=== PATIENT | male | born 1955 | race Caucasian/White ===

== ENCOUNTER → 2017-12-05 02:39 | Outpatient (CLI) | payer OTHER, SELFPAY ==
[2017-12-05 11:28] LABS: Abs Immature Grans 0.03 k/cumm (0.0-0.09); Absolute Basophil Count 0.03 k/cumm (0.0-0.2); Absolute Eosinophil Count 0.15 k/cumm (0.0-0.7); Absolute Lymphocyte Count 0.72 k/cumm (1.2-3.4); Absolute Monocyte Count 0.61 k/cumm (0.11-0.7); Absolute Neutrophil Count 5.35 k/cumm (1.2-6.7); Basophils % 0.4; Eosinophils % 2.2; HCT 43.1 % (40.0-50.0); HGB 14.1 g/dL (13.5-17.5); Immature Grans % 0.4; Lymphocytes % 10.4; Mean Corp. HGB Concentration 32.7 g/dL (32.0-36.0); Mean Corpuscular Hemoglobin 25.5 pg (27.0-33.0); Mean Corpuscular Volume 77.9 fL (80-95); Mean Platelet Volume 11.6 fL (8.0-11.0); Monocytes % 8.9; Neutrophils % 77.7; Platelet Count 166 x1000/uL (130-400); RBC 5.53 m/cumm (4.50-6.00); RBC Distribution Width 15.1 % (11.8-14.1); White Blood Cell Count 6.89 k/cumm (4.4-10.8)
[2017-12-05 11:36] LABS: ALT 33 U/L (12-78); AST 18 U/L (15-37); Albumin 3.6 g/dL (3.4-5.0); Alkaline Phosphatase 62 U/L (46-116); Anion Gap 6.7 mmol/L (3-11); BUN 19 mg/dL (7-18); Bilirubin, Total 0.6 mg/dL (0.2-1.0); CO2 29.3 mmol/L (21.0-32.0); CREATININE 1.04 mg/dL (0.70-1.30); Calcium 8.2 mg/dL (8.5-10.1); Chloride 105 mmol/L (98-107); Cholesterol 212 mg/dL (50-200); Glucose 87 mg/dL (70-100); HDL Cholesterol 48 mg/dL (40-60); LDL CHOLESTEROL 153 mg/dL (<100); Potassium 4.2 mmol/L (3.5-5.1); Sodium 141 mmol/L (136-145); Total Protein 6.3 g/dL (6.4-8.2); Triglyceride 79 mg/dL (30-150)
== END ==
PROVIDERS: PCP Internal Medicine; Visit Provider Internal Medicine
DX: E78.5 Hyperlipidemia, unspecified (principal); R07.9 Chest pain, unspecified; D64.9 Anemia, unspecified; Z83.3 Family history of diabetes mellitus; R35.1 Nocturia
CPT/HCPCS: 36415; 80053; 80061; 83721; 84154; 85025

== ENCOUNTER 2019-02-04 13:47 | Outpatient (REF) | payer MEDICARE, OTHER, SELFPAY ==
--- NOTE | 2019-02-04 11:45 | SKI_PTH ---
PATIENT: Anival Kyle LOC: N U#:[id number] AGE/SX: 63/M ROOM: RE02/04/[address]: Parvin Chen MD : [id number] BED: DIS: 02/04/2019 SPEC #: [id number] RECD: 02/04/19 18:30 STATUS: VITALIY REQ #: [id number] CANDI: 02/04/19 11:[address]: Parvin Malloy DEPT: Surgical Specimen RECD BY: Diya Boyer Tissues: 1 - SKIN BIOPSY(SHAVE/PUNCH) Procedures: SKIN LEVEL 4 Comments: [id number]
== END 2019-02-04 14:07 ==
LOC: LBN 13:47
PROVIDERS: PCP Internal Medicine; Visit Provider Internal Medicine
DX: L72.8 Other follicular cysts of the skin and subcutaneous tissue (principal); L28.0 Lichen simplex chronicus
CPT/HCPCS: 88305

== ENCOUNTER 2020-04-28 02:07 | Outpatient (CLI) | payer MEDICARE, OTHER, SELFPAY ==
[2020-04-28 12:54] LABS: Calculated LDL 91 mg/dL (<100); Cholesterol 157 mg/dL (<200); Glucose 93 mg/dL (74-106); HDL Cholesterol 53 mg/dL (40-60); Triglyceride 65 mg/dL (<150)
== END 2020-04-28 02:27 ==
PROVIDERS: PCP Nurse Practitioner; Visit Provider Nurse Practitioner
DX: E78.5 Hyperlipidemia, unspecified (principal); R07.9 Chest pain, unspecified
CPT/HCPCS: 36415; 80061; 82947

== ENCOUNTER 2020-08-07 13:51 | Emergency (ER) | payer MEDICARE, OTHER, SELFPAY ==
--- NOTE | 2020-08-07 13:45 | RT.EKG_ITS ---
APPROVED REPORT Exam: Resting ECG Patient Location: E HR:69 bpm ECG Measurements Heart Rate 69 AXIS FL 170 P 12 QRSd 95 QRS -15 QT 400 T -5 QTc 427 Conclusion Sinus rhythm...normal P axis, V-rate 60- 99 Low voltage, precordial leads...precordial leads <1.0mV I have reviewed and interpreted ECG and agree with software generated interpretation.
[2020-08-07 13:53] VITALS: BP 147/88; PULSE 82; RESP 18; TEMP 36.5; O2SAT 94
--- NOTE | 2020-08-07 14:04 | ED.GENADUL_ITS ---
Discharge Plan Disposition Patient Disposition: HOME Condition: Stable Discharge Details Clinical Impression: Burning chest pain Primary Care Provider: Gi Reddy ED Provider: Landon Cavanaugh Home Meds and New Rx's Prescriptions: New sucralfate [Carafate] 1 gram tablet 1 gm PO QACHS Qty: 14 RF: 0 famotidine [Pepcid] 20 mg tablet 20 mg PO DAILY Qty: 14 RF: 0 Continued cholecalciferol (vitamin D3) 5,000 unit capsule 5,000 unit PO DAILY RF: 0 atorvastatin 40 mg tablet 40 mg PO QPM Qty: 90 RF: 3 lisinopril 10 mg tablet 10 mg PO DAILY Qty: 90 RF: 3 citalopram 20 mg tablet 20 mg PO DAILY Qty: 135 RF: 3 Discharge Instructions Instructions: Chest Pain (ED), Diet for Stomach Ulcers and Gastritis (ED), GERD (Gastroesophageal Reflux Disease) (ED) Additional Instructions: Drink plenty of fluids and get plenty of rest. Your prescriptions have been sent electronically to your pharmacy. Call the pharmacy to make sure your prescriptions are ready before pickup. Take the prescriptions as directed. An order for an outpatient stress test has been placed. You will be contacted by the hospital radiology department regarding scheduling for this outpatient stress test. If your burning chest pain persists, call the general surgery office to schedule a follow-up appointment for reevaluation for consideration for possible GI causes of your chest pain including GERD, gastritis or ulcers. Follow-up with your primary care doctor in 1 week. Return to the emergency department with any worsening or new concerning symptoms. Referrals: Jing Colón DO [OSTEOPATHIC DOCTOR] - Discharge Data Discharge Date/Time-TO BE ENTERED AT DEPARTURE: 08/07/20 17:45 Discharge Physician: Olivia Mac Medical Decision Making <Olivia Mac DO - Last Filed: 08/07/20 20:36> 64-year-old male with a history of hypertension and obesity presents to the ED with complaint of intermittent exertional burning chest pain for the past several months, worse today with shoveling snow. EKG on arrival notes a rate of 69, sinus, no STEMI, nondiagnostic. Patient appears comfortable and nontoxic. Blood pressure mildly hypertensive at 147/88. His chest is nontender. He does admit to eating a fatty meal in the mornings frequently. He admits to an exertional component of his chest pain associated with dyspnea but also states the pain is burning with an acid taste in his mouth. Consider GI related etiology versus ACS. Will obtain screening labs, CT chest, and give Pepcid, GI cocktail, Carafate, fluids and reassess. Labs and imaging reviewed and unremarkable. Troponin negative. CT chest negative. Patient reassessed and his pain is completely resolved. Patient is agreeable with plan for second troponin. If negative, will plan for discharge to home. An order for an outpatient stress test placed. We will also send prescriptions for Pepcid and Carafate electronically to his pharmacy. He was also given surgery follow-up information if needed. Case endorsed to Dr. Cavanaugh to follow-up on repeat troponin and EKG. Medical Records Medical records reviewed: Yes I reviewed the patient's medical records. Imaging Data Radiologic Study: Radiologist's impression: CT CHEST PE CTA CLINICAL HISTORY: chest pain, sob, r/o acute disease. TECHNIQUE: Imaging Protocol: Axial CT angiography was performed with multi- slice acquisition and multi-planar and/or 3D reconstructions. CONTRAST MATERIAL: Intravenous: Visipaque 320 contrast volume:100 ml COMPARISON: CT RENAL COLIC WO CONTRAST from 06/21/2012 FINDINGS: Pulmonary Arteries: No evidence of filling defect to suggest pulmonary emboli. Tracheobronchial tree: Patent where visualized. Mediastinum and Monique: No dominant adenopathy or fluid collection. Pulmonary parenchyma: Limited evaluation due to respiratory motion and poor inspiratory effort. No consolidation or dominant measurable mass. No architectural distortion. Pleura: No effusion or pneumothorax. Heart: The heart is not dilated. No coronary artery calcifications are seen. Aorta: Thoracic aorta non-dilated. Minimal atherosclerotic changes. No evidence of dissection. Upper abdomen: Unremarkable. Bones: Degenerative disc changes in the mid thoracic spine. IMPRESSION: No evidence of pulmonary embolism or other acute abnormality.. Lab Data Lab results reviewed: Yes I reviewed the patient's lab results. Labs: Laboratory Tests Range/Units 08/07/20 08/07/20 08/07/20 13:45 13:45 13:45 WBC (4.4-10.8) 10^3/uL 7.27 RBC (4.36-5.78) 10^6/uL 5.92 H Hgb (13.5-17.5) g/dL 15.1 Hct (40.0-50.0) % 46.2 MCV (80-95) fL 78.0 L MCH (27.0-33.0) pg 25.5 L MCHC (32.0-36.0) % 32.7 RDW (11.8-14.1) % 14.1 Plt Count (130-400) 10^3/uL 194 MPV (8.0-11.0) fL 10.3 Immature Gran % 1.0 Neutrophils % 70.1 Lymphocytes % 15.3 Monocytes % 7.8 Eosinophils % 4.8 Basophils % 1.0 Nucleated RBC % % 0 Absolute Neutrophils (1.2-6.7) 10^3/uL 5.10 Absolute Lymphocytes (1.2-3.4) 10^3/uL 1.11 L Absolute Monocytes (0.1-0.8) 10^3/uL 0.57 Absolute Eosinophils (0.0-0.7) 10^3/uL 0.35 Absolute Basophils (0.0-0.2) 10^3/uL 0.07 PT (9.3-11.0) sec 9.5 INR (0.9-1.1) 0.9 APTT (21.0-27.5) sec 23.3 Sodium (136-145) mmol/L 142 Potassium (3.5-5.1) mmol/L 3.8 Chloride (98-107) mmol/L 107 Carbon Dioxide (21.0-32.0) mmol/L 27.9 Anion Gap (3-11) mmol/L 7.1 BUN (7-18) mg/dL 19 H Creatinine (0.70-1.30) mg/dL 1.2 Estimated GFR/1.73 m2 (mL/min/1.73m2) >= 60.00 Glucose (74-106) mg/dL 101 Calcium (8.5-10.1) mg/dL 8.6 Magnesium (1.8-2.4) mg/dL 2.0 Total Bilirubin (0.2-1.0) mg/dL 0.3 AST (15-37) U/L 18 ALT (16-63) U/L 43 Alkaline Phosphatase (46-116) U/L 85 Troponin I (<0.06) ng/mL < 0.05 Total Protein (6.4-8.2) g/dL 7.2 Albumin (3.4-5.0) g/dL 3.9 ECG Data Attestation: I personally reviewed and interpreted this ECG (s) as follows: Interpretation: Rate of 69, sinus, no STEMI, nondiagnostic. ME 170. QRS 95. QTc 427. <Landon Cavanaugh MD - Last Filed: 08/07/20 17:36> 1734??care signed out by Dr. Mac with plan to follow-up on delta troponin and repeat EKG. Troponin is negative and unchanged. Repeat EKG is nondiagnostic with no significant changes. Patient was reassessed and has remained pain-free after GI cocktail. Suspect gastrointestinal etiology. Plan will be for discharge with outpatient follow-up. An outpatient stress test has been ordered by Dr. Mac. Patient is to be started on Pepcid. I also advised the patient to take a baby aspirin daily. Disposition decision was made weighing the risks and benefits of hospitalization versus outpatient treatment, the risk for further decompensation, and the patient's wishes. The patient was stable and requested discharge. Prior to discharge, my usual and customary return precautions were reviewed with the patient - this included follow-up instructions and reason to return to the emergency department if condition worsens, does not improve as expected, or other new concerns arise. HPI <Olivia Mac DO - Last Filed: 08/07/20 20:36> General Mode of arrival: ambulatory . Date/Time Provider Initiated Documentation: 08/07/20 13:57 . Limitations to Documentation: no limitations . Information obtained by: patient . HPI Narrative: Patient is a 54-year-old male with a history of hypertension, obesity, depression and kidney stones presents to the ED with complaint of burning chest pain today after shoveling snow. Patient states he ate an egg omelette and escamilla this morning and approximately 3 hours later was shoveling snow and developed burning chest pain. He also admits to an acid taste in his mouth. He states the pain initially was 9/10 but is currently 2/10. He admits to similar episodes occurring approximately 1-2 times weekly over the past few months that occurs mainly with exertion. He states he has been moving a lot of firewood or other exertional activity and admits to burning chest pain at times with this. He denies any pain at rest. He states he had been an avid runner in the past and used to be able to run long distances without any difficulty. He states since February he has become more winded with running and has been unable to do this. He denies any fever, cough, nausea, vomiting, dizziness, diaphoresis, recent new medications, recent known exposure to coronavirus, recent travel, leg pain or swelling. He states he has not taken any medication for his burning chest pain. He denies any change in his pain with position. Related Data Home Medications Medication Instructions Recorded Confirmed cholecalciferol (vitamin D3) 125 5,000 unit PO DAILY 12/05/18 08/07/20 mcg (5,000 unit) capsule atorvastatin 40 mg tablet 40 mg PO QPM #90 tab 12/12/19 08/07/20 citalopram 20 mg tablet 20 mg PO DAILY #135 tab-cap 03/31/20 08/07/20 lisinopril 10 mg tablet 10 mg PO DAILY #90 tab 04/28/20 08/07/20 famotidine [Pepcid] 20 mg PO DAILY #14 tab 08/07/20 sucralfate [Carafate] 1 gm PO QACHS #14 tab 08/07/20 Previous Rx's Medication Instructions Recorded atorvastatin 40 mg tablet 40 mg PO QPM #90 tab 12/12/19 citalopram 20 mg tablet 20 mg PO DAILY #135 tab-cap 03/31/20 lisinopril 10 mg tablet 10 mg PO DAILY #90 tab 04/28/20 famotidine [Pepcid] 20 mg PO DAILY #14 tab 08/07/20 sucralfate [Carafate] 1 gm PO QACHS #14 tab 08/07/20 Allergies Allergy/AdvReac Type Severity Reaction Status Date / Time No Known Allergies Allergy Verified 08/07/20 14:00 General Stated Complaint: Chest Pain JIM: 2 Review of Systems <Olivia Mac DO - Last Filed: 08/07/20 20:36> All systems reviewed & are unremarkable except as noted in HPI and below Constitutional Constitutional: Reports as per HPI, Denies chills and Denies fever(s) Eyes Eyes: Denies blurry vision ENT Ears, Nose, Mouth, and Throat: Denies dizziness, Denies sore throat and Denies throat swelling Cardiovascular Cardiovascular: Reports chest pain and Denies dyspnea Respiratory Respiratory: Denies cough and Denies dyspnea Gastrointestinal Gastrointestinal: Denies abdominal pain, Denies diarrhea and Denies vomiting Genitourinary Genitourinary: Denies hematuria and Denies dysuria Musculoskeletal Musculoskeletal: Denies back pain and Denies numbness Integumentary/Breasts Skin/Breast: Denies lesions and Denies rash Neurologic Neurologic: Denies dizziness, Denies localized weakness and Denies numbness Allergic/Immunologic Allergic/Immunologic: Denies throat swelling PFSH <Olivia Mac DO - Last Filed: 08/07/20 20:36> Medical History (Updated 08/07/20 @ 16:09 by Olivia Mac DO) Chest pain atypical; neg. stress test; ? GERD Color vision deficiency Family history of cardiovascular disease (04/11/13) Family history of diabetes mellitus (04/11/13) Kidney stone (06/22/12) Surgical History (Updated 01/31/18 @ 14:36 by [facility]) Arthroplasty of knee RIGHT 2003 LEFT 2009 Stent placement 06/2007-LEFT URETERAL STENT PLACED; CYSTOURETHROSCOPY;DR. HAMILTON Tonsillectomy Family History (Updated 12/14/19 @ 13:01 by Abbi Johnson) Mother , 90 Diabetes Heart disease Father , 45 Heart disease Alcohol abuse Diabetes Sister Heart disease Stroke Brother Alcohol abuse Depression Maternal Grandfather , 70 Cancer Paternal Grandfather , 67 No problems noted. Maternal Grandmother , 69 No problems noted. Paternal Grandmother , 80 No problems noted. Sister Depression Sister No problems noted. Brother Diabetes Daughter No problems noted. Daughter No problems noted. Social History (Updated 12/14/19 @ 13:00 by Abbi Johnson) Smoking/Tobacco Use Status: Former Tobacco Use Quit Date: 04/17/99 Tobacco: How many years used: 8 Second Hand Exposure: Yes Smoking risk assessment performed?: Yes Alcohol Intake: current Alcohol Intake frequency: 0-2 drinks per day Alcohol type: beer Drug use: Never Caregiver/Support person: No Household members: spouse Housing: house Communication Needs: None Pets and animals: No Sexually active: No Do you think of yourself as: straight/heterosexual Current gender identity: male What is your relationship status?: How often do you talk on the phone with friends or family?: once per week How often do you get together with friends or relatives?: twice per week How often do you attend gnosticist or hoahaoism services?: 4 or more times per year Do you belong to any clubs or organized social groups?: no Panel score (0-1 are the most socially isolated patients): 3 What type of physical activity do you participate in: running Duration: 15-30 minutes/day Frequency: 5-6 times per week Zaria/Orthodoxy: Hinduism Special zaria needs: No Seatbelt use: always Helmet use: Yes Helmet use: always Drive intox or ride w/intox local flatbed driver: No Do you feel safe at home: Yes Do you feel safe in your relationship?: Yes Exam <Olivia Mac DO - Last Filed: 08/07/20 20:36> Const General: cooperative and no acute distress HENMT Head: normal to inspection Face and sinus: normal facial exam Eyes General: appearance normal, both eyes and all related structures EOM: EOM intact bilaterally Neck Neck: normal visual inspection and No submandibular swelling Lymphatic: no lymphadenopathy noted Chest Chest: normal inspection of the chest and no tenderness Resp Effort & Inspection: normal respiratory effort and able to speak in complete sentences Auscultation: clear to auscultation bilaterally Cardio Rate: regular rate Rhythm: regular rhythm GI Inspection: normal to inspection Palpation: soft, not firm, not rigid and nontender Auscultation: normal bowel sounds Skin General skin exam: no rashes or lesions noted Neuro General: patient alert, patient awake and patient oriented x3 Cognition: normal cognition Speech: speech normal Motor: muscle tone normal throughout Sensory Exam: no sensory deficits noted Extrem General: normal to inspection, full ROM, capillary refill normal, no calf tenderness bilaterally and no edema Psych Appearance: grossly normal Mental Status: mental status grossly normal Speech and Movement: speech and movement normal Affect: normal affect Course <Olivia Mac DO - Last Filed: 08/07/20 20:36> Vital Signs Vital signs: Vital Signs Temperature 97.7 F 08/07/20 13:53 Pulse 82 08/07/20 13:53 Respiratory Rate 18 08/07/20 13:53 Blood Pressure 147/88 H 08/07/20 13:53 Pulse Oximetry 94 08/07/20 13:53 Temperature 97.7 F 08/07/20 13:53 Temperature Source Skin 08/07/20 13:53 Pulse 82 08/07/20 13:53 Respiratory Rate 18 08/07/20 13:53 Blood Pressure 147/88 H 08/07/20 13:53 Blood Pressure Position Sitting 08/07/20 13:53 Pulse Oximetry 94 08/07/20 13:53 Oxygen Delivery Method Room Air 08/07/20 13:53 Oxygen Flow Rate 0 08/07/20 13:53 Pain Level 2 08/07/20 13:53 Comment 08/07/20 13:53 Sign Out <Olivia Mac DO - Last Filed: 08/07/20 20:36> Sign Out Data: Sign Out Comment: Follow-up on repeat troponin. If negative and patient remains asymptomatic, will plan for discharge to home with outpatient stress test. Last updated by Olivia Mac DO at 08/07/20 16:07
[2020-08-07 14:05] VITALS: RESP 18
[2020-08-07 14:20] LABS: Abs Immature Grans 0.07 10^3/uL (0.0-0.06); Absolute Basophil Count 0.07 10^3/uL (0.0-0.2); Absolute Eosinophil Count 0.35 10^3/uL (0.0-0.7); Absolute Lymphocyte Count 1.11 10^3/uL (1.2-3.4); Absolute Monocyte Count 0.57 10^3/uL (0.1-0.8); Eosinophils % 4.8; HCT 46.2 % (40.0-50.0); HGB 15.1 g/dL (13.5-17.5); Lymphocytes % 15.3; MCH 25.5 pg (27.0-33.0); MCHC 32.7 % (32.0-36.0); MPV 10.3 fL (8.0-11.0); Monocytes % 7.8; Neutrophils % 70.1; Nucleated RBC 0 %; Platelet Count 194 10^3/uL (130-400); RBC 5.92 10^6/uL (4.36-5.78); RDW 14.1 % (11.8-14.1); RDW-SD 39.7 fL; WBC 7.27 10^3/uL (4.4-10.8)
--- NOTE | 2020-08-07 14:30 | DI.CT_ITS ---
EXAM: CT CHEST PE CTA CLINICAL HISTORY: chest pain, sob, r/o acute disease. TECHNIQUE: Imaging Protocol: Axial CT angiography was performed with multi-slice acquisition and mu lti-planar and/or 3D reconstructions. CONTRAST MATERIAL: Intravenous: Visipaque 320 contrast volume:100 ml COMPARISON: CT RENAL COLIC WO CONTRAST from 06/21/2012 FINDINGS: Pulmonary Arteries: No evidence of filling defect to suggest pulmonary emboli. Tracheobronchial tree: Patent where visualized. Mediastinum and Monique: No dominant adenopathy or fluid collection. Pulmonary parenchyma: Limited evaluation due to respiratory motion and poor inspiratory effort. No c onsolidation or dominant measurable mass. No architectural distortion. Pleura: No effusion or pneumothorax. Heart: The heart is not dilated. No coronary artery calcifications are seen. Aorta: Thoracic aorta non-dilated. Minimal atherosclerotic changes. No evidence of dissection. Upper abdomen: Unremarkable. Bones: Degenerative disc changes in the mid thoracic spine. IMPRESSION: No evidence of pulmonary embolism or other acute abnormality.. RADIATION DOSE DELIVERED: 525.61mGy.cm Total DLP DATA REPOSITORY: All CT scans at this facility are submitted to the National Radiology Data Registry (NRDR) Dose Index Registry (DIR) with the [employer] (A[employer]). RADIATION OPTIMIZATION: All CT scans at this facility use at least one of these dose optimization te chniques: automated exposure control; mA and/or kV adjustment per patient size (includes targeted exa ms where dose is matched to clinical indication); or iterative reconstruction.
[2020-08-07 14:32] LABS: ALT 43 U/L (16-63); AST 18 U/L (15-37); Albumin 3.9 g/dL (3.4-5.0); Alkaline Phosphatase 85 U/L (46-116); Anion Gap 7.1 mmol/L (3-11); BUN 19 mg/dL (7-18); Bilirubin, Total 0.3 mg/dL (0.2-1.0); CO2 27.9 mmol/L (21.0-32.0); CREATININE 1.2 mg/dL (0.70-1.30); Calcium 8.6 mg/dL (8.5-10.1); Chloride 107 mmol/L (98-107); Glucose 101 mg/dL (74-106); Potassium 3.8 mmol/L (3.5-5.1); Sodium 142 mmol/L (136-145); Total Protein 7.2 g/dL (6.4-8.2)
[2020-08-07 14:33] LABS: INR 0.9 (0.9-1.1); PTT Activated 23.3 sec (21.0-27.5); Prothrombin Time 9.5 sec (9.3-11.0); Troponin I < 0.05 ng/mL (<0.06)
[2020-08-07] MEDS: FAMOTIDINE 20 MG/50 ML BAG 200 MG IVPB (14:48)
[2020-08-07] MEDS: Normal Saline 1,000 ML 1000 ML IV (14:49)
[2020-08-07] MEDS: Sucralfate 1 GM TAB PO (14:51)
[2020-08-07 15:24] VITALS: BP 155/80; PULSE 56; RESP 18; O2SAT 95
[2020-08-07] MEDS: Normal Saline - Diluent 50 ML VIAL IV (15:27)
--- NOTE | 2020-08-07 15:30 | RT.EKG_ITS ---
APPROVED REPORT Exam: Resting ECG Patient Location: E HR:47 bpm ECG Measurements Heart Rate 47 AXIS PA 173 P 24 QRSd 99 QRS -1 QT 485 T -8 QTc 429 Conclusion Sinus bradycardia...rate< 60 Low voltage, precordial leads...precordial leads <1.0mV
[2020-08-07 15:39] VITALS: BP 147/69; PULSE 52; RESP 18; O2SAT 96
[2020-08-07 15:56] VITALS: BP 141/81; PULSE 50; RESP 18; O2SAT 95
[2020-08-07 16:22] LABS: Source Nasal/Nares
[2020-08-07 17:11] VITALS: BP 128/84; PULSE 46; RESP 18; O2SAT 96
[2020-08-07 17:15] LABS: Troponin I < 0.05 ng/mL (<0.06)
[2020-08-07] MEDS: Aspirin 81 MG CHEW (17:45)
[2020-08-07 18:34] LABS: COVID-19 PCR Negative (Negative)
--- NOTE | 2020-08-10 12:46 | PDOC.ERCMACT ---
- If Service Date Differs Date of service: 08/10/20 Time of Service: 12:46 Care Management Activity Note CM hand delivered the stress test order to radiology today, as it was unclear if the order had been faxed to them previously.
== END 2020-08-07 17:45 | disposition home or self-care (01) ==
PROVIDERS: Physician Assistant; Emergency Provider Student in an Organized Health Care Education/Training Program; PCP Nurse Practitioner
DX: R07.89 Other chest pain (principal)
CPT/HCPCS: 71275; 80053; 87635; 93005; 96361; 96365; 99285; 83735; 84484; 85025; 85610; 85730; 93010; 99284

== ENCOUNTER 2020-08-11 06:12 | Outpatient (CLI) | payer MEDICARE, OTHER, SELFPAY ==
--- NOTE | 2020-08-11 09:00 | ETT_ITS ---
APPROVED REPORT Exam: Exercise Treadmill Patient Location: Out-Patient Room/Bed: Stress Nurse: Marie Lange RN Ordering Provider:SUMIT KING, Contact Number: [phone] BMI: 32.88 Baseline Rhythm: Sinus Bradycardia Comment: PVCs Medical History Medical History: Atypical chest pain, hypertension, SAURAV, hyperlipidemia, depression, benign neoplasm of colon, obesity Cardiac Medications: Atorvastatin, lisinopril, famotidine Allergies: NKA Cardiac Risk Factors: Hypertension, hyperlipidemia, obesity, smoker (former), family hx Previous Cardiac Procedures: None Pretest Chest Pain Characteristics: None Exercise History: Physically active Physical Disabilities: None Lung Sounds: Clear to auscultation Heart Sounds: Regular Stress Test Details Test: Exercise stress testing was performed using a Jacinto protocol. Rest Stress HR Resting HR Supine: 52 bpm Max Heart Rate (APMHR): 154 bpm Resting HR Standin bpm Target HR (85% APMHR): 130 bpm Max HR Achieved: 167 bpm % of APMHR: 108 Recovery HR: 65 bpm HR response to stress: Normal HR response to stress BP Resting BP Supine: 128/80 mmHg Resting BP Standin/82 mmHg Max BP: 172/70 mmHg Recovery BP: 136/78 mmHg BP response to stress: Normal blood pressure response to stress. ECG Resting ECG: Sinus Bradycardia Ectopy: PVCs Stress ECG: Sinus Tachycardia ST Change: No significant ST segment changes noted Arrhythmia: Occasional PAC, PVCs Recovery ECG: Sinus Rhythm Recovery ST Change: No significant ST segment changes noted Recovery Arrhythmia: PAC, PVCs Clinical Reason for Termination: Fatigue Stress Symptoms: General Fatigue Exercise duration: 12 min26 sec Highest Stage Reached: Stage 5: 5.0 mph at 18% grade. Exercise capacity: 13.77 METs Almanza Treadmill Score: 11 Rate Pressure Product: [id number] Stress ECG Conclusion 1. The patient exercised for 12 minutes (14 METS). Exercise was stopped due to fatigue. 2. Patient no symptoms suggestive of ischemia. Heart rate and blood pressure augmented appropriately . 3. There is no evidence of ischemia on the ECG portion of the exam. Almanza Treadmill Score is 11 which is Low risk. Stress Test Summary STAGE Time (mins) Speed (mph) Grade (%) HR BP SYMPTOMS METS Supine 52 128/80 Standing 61 130/82 1 3 1.7 10 97 136/80 96% O2 4.6 2 6 2.5 12 108 144/76 7 3 9 3.4 14 108 160/76 93% O2 10.2 4 12 4.2 16 130 12.9 1 min recovery 119 172/70 3 min recovery 65 158/74 6 min recovery 65 136/78
== END 2020-08-11 06:32 ==
PROVIDERS: PCP Nurse Practitioner; Visit Provider Physician Assistant
DX: R07.9 Chest pain, unspecified (principal); I49.3 Ventricular premature depolarization; I10 Essential (primary) hypertension; E78.5 Hyperlipidemia, unspecified; E66.9 Obesity, unspecified; Z87.891 Personal history of nicotine dependence; Z82.49 Family history of ischemic heart disease and other diseases of the circulatory system
CPT/HCPCS: 93016; 93018; 93306; 93017

== ENCOUNTER 2021-10-14 06:38 | Observation (INO) | payer MEDICARE, OTHER, SELFPAY ==
[2021-10-14] VITALS (8 sets, daily range): BP systolic 119–155; BP diastolic 65–83; PULSE 52–58; RESP 16–18; TEMP 35.8–36.9; O2SAT 96–97
--- NOTE | 2021-10-14 06:45 | RT.EKG_ITS ---
APPROVED REPORT Exam: Resting ECG Reason for Exam: dizzy Patient Location: E HR:51 bpm ECG Measurements Heart Rate 51 AXIS TN 186 P 46 QRSd 100 QRS 9 QT 489 T 3 QTc 452 Conclusion Bradycardia with irregular rate...V-rate 43- 63, mean < 60 Physician: Rate 51, sinus bradycardia no significant ST elevations or depressions. No STEMI. Invert ed T wave present in V1 and lead III. Unchanged from prior EKG on 08/07/2020
--- NOTE | 2021-10-14 07:07 | W.ED.GENAD ---
Discharge Plan Disposition Patient Disposition: STILL A PATIENT Condition: Good Discharge Details Chief Complaint: Dizzy/Sync Clinical Impression: Vertigo Primary Care Provider: Gi Reddy ED Provider: Marbin Madden Home Meds and New Rx's Prescriptions: No Action cholecalciferol (vitamin D3) 5,000 unit capsule 5,000 unit PO DAILY Label Comments: 12/05/18 sometimes forget it. si lisinopril 10 mg tablet 10 mg PO DAILY Qty: 90 4RF atorvastatin 40 mg tablet 40 mg PO QPM Qty: 90 4RF citalopram 20 mg tablet 20 mg PO DAILY Qty: 90 4RF Discharge Instructions Instructions: Vertigo (ED) Medical Decision Making 65-year-old male with a past medical history of hypertension, high cholesterol, who presents today for evaluation of dizziness. Patient states that last night he woke up out of sleep as he turned his head and woke up suddenly extremely dizzy. He had 1 episode of vomiting, and then went back to sleep feeling slightly better. He woke up again this morning when he turned his head once more, and again felt notably dizzy and lightheaded when this occurred. Since then he has had slight improvement but still feels slightly dizzy. It is worse with turning his head quickly. He denies any headache, vision changes, numbness, tingling or weakness otherwise. He denies any change in medications. He denies any trauma to his head. No tinnitus or ringing in his ears. He denies any recent infection, however he does admit to having a tooth pulled over a week ago. He has been doing well with this otherwise. He does admit to mild achiness in his extracted tooth area. Physical exam demonstrates unidirectional fatigable right-sided horizontal nystagmus. No vertical or rotatory nystagmus. Positive head impulse test with movement to the right. Negative test of skew. Patient ambulates well with no signs of ataxia. Symptoms at this time appear consistent with peripheral vertigo. However because of the patient's age, and risk factors will do CT scan to evaluate for large stroke or bleed. Will give meclizine, gently rehydrate, monitor closely and reassess. Patient will be signed out to my colleague for follow-up on labs and imaging. EKG 6: 53 Rate 51, sinus bradycardia no significant ST elevations or depressions. No STEMI. Inverted T wave present in V1 and lead III. Unchanged from prior EKG on 08/07/2020 HPI General Date/Time Provider Initiated Documentation: 10/14/21 06:47. HPI Narrative: 65-year-old male with a past medical history of hypertension, high cholesterol, who presents today for evaluation of dizziness. Patient states that last night he woke up out of sleep as he turned his head and woke up suddenly extremely dizzy. He had 1 episode of vomiting, and then went back to sleep feeling slightly better. He woke up again this morning when he turned his head once more, and again felt notably dizzy and lightheaded when this occurred. Since then he has had slight improvement but still feels slightly dizzy. It is worse with turning his head quickly. He denies any headache, vision changes, numbness, tingling or weakness otherwise. He denies any change in medications. He denies any trauma to his head. No tinnitus or ringing in his ears. He denies any recent infection, however he does admit to having a tooth pulled over a week ago. He has been doing well with this otherwise. He does admit to mild achiness in his extracted tooth area. Related Data Home Medications Medication Instructions Recorded Confirmed cholecalciferol (vitamin D3) 125 5,000 unit PO DAILY 12/05/18 10/14/21 mcg (5,000 unit) capsule atorvastatin 40 mg tablet 40 mg PO QPM #90 tabs 12/15/20 10/14/21 citalopram 20 mg tablet 20 mg PO DAILY #90 tab-caps 12/15/20 10/14/21 lisinopril 10 mg tablet 10 mg PO DAILY #90 tabs 12/15/20 10/14/21 Previous Rx's Medication Instructions Recorded atorvastatin 40 mg tablet 40 mg PO QPM #90 tabs 12/15/20 citalopram 20 mg tablet 20 mg PO DAILY #90 tab-caps 12/15/20 lisinopril 10 mg tablet 10 mg PO DAILY #90 tabs 12/15/20 Allergies Allergy/AdvReac Type Severity Reaction Status Date / Time trees,weeds,grasses Allergy Uncoded 10/14/21 06:47 General Stated Complaint: Dizzy/Sync JIM: 2 Review of Systems All systems reviewed & are unremarkable except as noted in HPI and below PFSH All Active Problems (Updated 10/14/21 @ 07:28 by Marbin Madden DO) Vertigo (Acute) Hypertension (Chronic) Obstructive sleep apnea syndrome (Acute 11/25/15) Hyperlipidemia (Acute 12/14/12) Depressive disorder (Acute 12/14/12) Benign neoplasm of colon (Acute) Medical History Chest pain atypical; neg. stress test; ? GERD Color vision deficiency Family history of cardiovascular disease (04/11/13) Family history of diabetes mellitus (04/11/13) Kidney stone (06/22/12) Surgical History Arthroplasty of knee RIGHT 2003 LEFT 2009 Stent placement 06/2007-LEFT URETERAL STENT PLACED; CYSTOURETHROSCOPY;DR. HAMILTON Tonsillectomy Family History Mother , 90 Diabetes Heart disease Father , 45 Heart disease Alcohol abuse Diabetes Sister Heart disease Stroke Brother Alcohol abuse Depression Maternal Grandfather , 70 Cancer Paternal Grandfather , 67 No problems noted. Maternal Grandmother , 69 No problems noted. Paternal Grandmother , 80 No problems noted. Sister Depression Sister No problems noted. Brother Diabetes Daughter No problems noted. Daughter No problems noted. Social History Smoking/Tobacco Use Status: Former Tobacco Use Quit Date: 04/17/99 Tobacco: How many years used: 8 Second Hand Exposure: Yes Smoking risk assessment performed?: Yes Alcohol Intake: current Alcohol Intake frequency: 0-2 drinks per day Alcohol type: beer Drug use: Never Caregiver/Support person: No Household members: spouse Housing: house Communication Needs: None Do you need help understanding health information?: Always Pets and animals: No Sexually active: No Do you think of yourself as: straight/heterosexual Current gender identity: male What is your relationship status?: How often do you talk on the phone with friends or family?: three or more times per week How often do you get together with friends or relatives?: twice per week How often do you attend quaker or mormon services?: 4 or more times per year Panel score (0-1 are the most socially isolated patients): 3 What type of physical activity do you participate in: running Duration: 15-30 minutes/day Frequency: 5-6 times per week Zaria/Adventist: Buddhist Special zaria needs: No Seatbelt use: always Helmet use: Yes Helmet use: always Drive intox or ride w/intox pack train driver: No Do you feel safe at home: Yes Do you feel safe in your relationship?: Yes Exam Narrative Exam Narrative: 1.Const: Well-nourished, Well-developed, appearing stated age 2.Eyes: PERRL, no conjunctival injection, and symmetrical lids. 3.ENT: Atraumatic external nose and ears. Moist MM. Neck: Symmetric, trachea midline, No thyromegaly. 4.CVS: +S1/S2, No murmurs or gallops. Peripheral pulses 2+ and equal in all extremities. Brisk capillary refill in all extremities. 5.RESP: Unlabored respiratory effort. Clear to auscultation bilaterally. No wheezes rales or rhonchi 6.GI: Soft, Nontender/Nondistended, No hepatosplenomegaly. No guarding or rebound. 7.MSK: Normocephalic/Atraumatic, Extremities w/o deformity or ttp No cyanosis or clubbing, Normal movement of all extremities 8.Skin: Warm, Dry. No rashes or lesions. 9.Neuro: managing consultant clinical professor II-XII grossly intact. Sensation grossly intact, no focal neurologic deficits. All 6 cardinal planes of vision are fully intact. No evidence of rotatory or vertical nystagmus. There is unidirectional right-sided fatigable horizontal nystagmus that is present. The patient demonstrated a normal qmhfsm-imvs-ontihb, good dexterity. There was no evidence of dysdiadochokinesia. Patient was able to ambulate without difficulty. There was no wide-based gait. Romberg testing was normal. Ieze-ai-yhcv testing was normal. Sensation was intact bilaterally as well as muscle strength bilaterally for all extremities. Patient was able to verbalize butter cup with no slurring, or miss pronunciation. Cerebellar function testing is normal. The patient demonstrates a normal hints exam with no findings concerning for a central event. No vertical nystagmus. The head impulse test is positive with brisk movement to the right. Normal test of skew. No suggestion of a central cerebellar event. 10.Psych: (AAO) x3. Appropriate mood and affect Course Vital Signs Vital signs: Vital Signs Temperature 36.4 C L 10/14/21 06:43 Pulse 52 L 10/14/21 06:43 Respiratory Rate 16 10/14/21 06:43 Blood Pressure 155/83 H 10/14/21 06:43 Pulse Oximetry 96 10/14/21 06:43 Temperature 36.4 C L 10/14/21 06:43 Temperature Source Temporal Artery Scan 10/14/21 06:43 Pulse 52 L 10/14/21 06:43 Respiratory Rate 16 10/14/21 06:43 Respiratory Effort 10/14/21 06:43 Blood Pressure 155/83 H 10/14/21 06:43 Blood Pressure Position Supine 10/14/21 06:43 Pulse Oximetry 96 10/14/21 06:43 Oxygen Delivery Method Room Air 10/14/21 06:43 Oxygen Flow Rate 0 10/14/21 06:43 Pain Level 0 10/14/21 06:43
[2021-10-14] MEDS: Normal Saline 1,000 ML 1000 ML IV (07:15)
[2021-10-14] MEDS: Meclizine 25 MG TAB PO (07:20)
[2021-10-14 07:25] LABS: Abs Immature Grans 0.08 10^3/uL (0.0-0.06); Absolute Basophil Count 0.06 10^3/uL (0.0-0.2); Absolute Eosinophil Count 0.16 10^3/uL (0.0-0.7); Absolute Lymphocyte Count 0.74 10^3/uL (1.2-3.4); Absolute Monocyte Count 0.62 10^3/uL (0.1-0.8); Absolute Neutrophil Count 4.79 10^3/uL (1.2-6.7); Basophils % 0.9; Eosinophils % 2.5; HGB 14.4 g/dL (13.5-17.5); Immature Grans % 1.2; Lymphocytes % 11.5; MCH 25.5 pg (27.0-33.0); MCHC 32.7 % (32.0-36.0); MCV 78 fL (80-95); MPV 10.3 fL (8.0-11.0); Monocytes % 9.6; Neutrophils % 74.3; Platelet Count 163 10^3/uL (130-400); RBC 5.65 10^6/uL (4.36-5.78); RDW 14.3 % (11.8-14.1); RDW-SD 39.8 fL; WBC 6.45 10^3/uL (4.4-10.8)
[2021-10-14] MEDS: Normal Saline Flush 10 ML SYR (07:31)
[2021-10-14 07:41] LABS: ALT 43 U/L (16-63); AST 25 U/L (15-37); Albumin 3.5 g/dL (3.4-5.0); Alkaline Phosphatase 67 U/L (46-116); Anion Gap 5.5 mmol/L (3-11); BUN 18 mg/dL (7-18); Bilirubin, Total 0.5 mg/dL (0.2-1.0); CO2 27.5 mmol/L (21.0-32.0); CREATININE 0.9 mg/dL (0.70-1.30); Calcium 8.3 mg/dL (8.5-10.1); Chloride 106 mmol/L (98-107); Glucose 121 mg/dL (74-106); Potassium 3.9 mmol/L (3.5-5.1); Sodium 139 mmol/L (136-145); Total Protein 6.5 g/dL (6.4-8.2)
--- NOTE | 2021-10-14 07:52 | DI.CT_ITS ---
Exam(s) CT HEAD WO EXAM: CT HEAD WO CLINICAL HISTORY: dizzy, light headed. TECHNIQUE: Imaging Protocol: Axial computed tomography images with coronal and sagittal reformatted images were created and reviewed COMPARISON: No exams were available for comparison FINDINGS: Ventricles and Extra axial spaces: Normal in size and morphology for the patient's age. Hemorrhage: None. Cerebral parenchyma: Normal. Midline shift: None. Brainstem/Cerebellum: Normal. Calvarium: Normal. Visualized Paranasal sinuses/Mastoids: Clear. Soft Tissues: Unremarkable. IMPRESSION: 1. No acute intracranial process. 2. Results of this exam have been verbally communicated with provider. RADIATION DOSE DELIVERED: 867.13mGy.cm Total DLP DATA REPOSITORY: All CT scans at this facility are submitted to the National Radiology Data Registry (NRDR) Dose Index Registry (DIR) with the [employer] (ACR). RADIATION OPTIMIZATION: All CT scans at this facility use at least one of these dose optimization te chniques: automated exposure control; mA and/or kV adjustment per patient size (includes targeted exa ms where dose is matched to clinical indication); or iterative reconstruction.
[2021-10-14] MEDS: Ondansetron 4 MG/2 ML VIAL IVP (08:05)
--- NOTE | 2021-10-14 10:30 | DI.MRI_ITS ---
Exam(s) MR BRAIN WO EXAM: MR BRAIN WO CLINICAL HISTORY: persistent vertigo TECHNIQUE: Multiplanar multisequence MRI of the brain was performed. COMPARISON: No exams were available for comparison FINDINGS: VENTRICLES AND EXTRA AXIAL SPACES: Normal in size and morphology for the patient's age. There is a 1. 0 x 1.0 cm mass in the right lateral ventricle. It is hypointense on the T2 weighted images. MIDLINE SHIFT: None. CEREBRAL PARENCHYMA: No focus of restricted diffusion to suggest acute infarct. No space-occupying le rory identified. HEMORRHAGE: None. BRAINSTEM/CEREBELLUM: Normal. CALVARIUM: Normal. VISUALIZED PARANASAL SINUSES/MASTOIDS:Clear. [place]: Normal flow void. PITUITARY GLAND: Unremarkable. OTHER FINDINGS: None. IMPRESSION: 1. No evidence of an acute infarct. 2. 1 cm mass in the right lateral ventricle. Postcontrast MRI of the brain is recommended for furthe r evaluation. This may represent a benign lesion such as a subependymoma or choroid plexus lesion. 3. Results of this exam have been verbally communicated with provider. DATA REPOSITORY:
[2021-10-14] MEDS: LORazepam 20 MG/10 ML VIAL IVP (10:57)
--- NOTE | 2021-10-14 12:47 | W.ED.FU ---
Date of service: 10/14/21 Time of Service: 12:47 Follow Up Plan: Received signout from Dr. Madden on this patient. Please see his note regarding details of initial presentation, exam and plan of care. Patient CT scan of the head was unremarkable. He had persistent vertigo and was referred for MRI to rule out posterior fossa process. The MRI was unremarkable for acute findings but did note a 1 x 1 cm mass on the right lateral ventricle. Dr. Bernal recommended outpatient follow-up with gadolinium enhanced MRI. After approximately 6 hours of management and observation in the ER, patient is improving. He attempted to trial sitting and standing but became recurrently nauseous and vertiginous. He is unable to safely discharge to home and will consider admission
--- NOTE | 2021-10-14 13:28 | W.PM.HP.N ---
Date of service: 10/14/21 Time of Service: 13:28 Assessment and Plan Assessment and plan (1) Vertigo: Status: Acute Assessment and plan: referred to observation PT consulted willie Pierson (2) Hypertension: Status: Chronic Assessment and plan: continue home medication stable Qualifiers: Hypertension type: essential hypertension Qualified Code(s): I10 - Essential (primary) hypertension (3) Hyperlipidemia: Status: Acute Assessment and plan: continue home medication (4) Depressive disorder: Status: Acute Assessment and plan: stable, continue home meds discussed with Dr Bauman History of Present Illness History of Present Illness Chief Complaint: dizziness Narrative: patient with onset of dizziness that started today after rolling over in bed. presented to the ED for evaluation. central etiology ruled out by MRI. He was given meclizine and ativan and was looking like he could be discharged but with ambulation developed nausea and vomiting again. hospitalist services contacted for observation stay for symptom management and PT referral. Review of Systems All systems reviewed & are unremarkable except as noted in HPI and below PFSH All Active Problems (Updated 10/14/21 @ 07:28 by Marbin Madden DO) Vertigo (Acute) Hypertension (Chronic) Obstructive sleep apnea syndrome (Acute 11/25/15) Hyperlipidemia (Acute 12/14/12) Depressive disorder (Acute 12/14/12) Benign neoplasm of colon (Acute) Medical History Chest pain atypical; neg. stress test; ? GERD Color vision deficiency Family history of cardiovascular disease (04/11/13) Family history of diabetes mellitus (04/11/13) Kidney stone (06/22/12) Surgical History Arthroplasty of knee RIGHT 2003 LEFT 2009 Stent placement 06/2007-LEFT URETERAL STENT PLACED; CYSTOURETHROSCOPY;DR. HAMILTON Tonsillectomy Family History Mother , 90 Diabetes Heart disease Father , 45 Heart disease Alcohol abuse Diabetes Sister Heart disease Stroke Brother Alcohol abuse Depression Maternal Grandfather , 70 Cancer Paternal Grandfather , 67 No problems noted. Maternal Grandmother , 69 No problems noted. Paternal Grandmother , 80 No problems noted. Sister Depression Sister No problems noted. Brother Diabetes Daughter No problems noted. Daughter No problems noted. Social History Smoking/Tobacco Use Status: Former Tobacco Use Quit Date: 04/17/99 Tobacco: How many years used: 8 Second Hand Exposure: Yes Smoking risk assessment performed?: Yes Alcohol Intake: current Alcohol Intake frequency: 0-2 drinks per day Alcohol type: beer Drug use: Never Caregiver/Support person: No Household members: spouse Housing: house Communication Needs: None Do you need help understanding health information?: Always Pets and animals: No Sexually active: No Do you think of yourself as: straight/heterosexual Current gender identity: male What is your relationship status?: How often do you talk on the phone with friends or family?: three or more times per week How often do you get together with friends or relatives?: twice per week How often do you attend latter-day or caodaism services?: 4 or more times per year Panel score (0-1 are the most socially isolated patients): 3 What type of physical activity do you participate in: running Duration: 15-30 minutes/day Frequency: 5-6 times per week Zaria/Confucianist: Adventism Special zaria needs: No Seatbelt use: always Helmet use: Yes Helmet use: always Drive intox or ride w/intox company driver: No Do you feel safe at home: Yes Do you feel safe in your relationship?: Yes Meds Allergies and Home Medications Allergies Allergy/AdvReac Type Severity Reaction Status Date / Time trees,weeds,grasses Allergy Uncoded 10/14/21 06:47 Home Medications Medication Instructions Recorded Confirmed Type cholecalciferol (vitamin D3) 125 5,000 unit PO DAILY 12/05/18 10/14/21 History mcg (5,000 unit) capsule atorvastatin 40 mg tablet 40 mg PO QPM #90 tabs 12/15/20 10/14/21 Rx citalopram 20 mg tablet 20 mg PO DAILY #90 tab-caps 12/15/20 10/14/21 Rx lisinopril 10 mg tablet 10 mg PO DAILY #90 tabs 12/15/20 10/14/21 Rx meclizine 25 mg tablet 25 mg PO TID PRN dizziness #20 tabs 10/14/21 Rx Exam Const General: cooperative, healthy appearing, comfortable and no acute distress Nutritional Appearance: average body habitus Orientation: alert, awake and oriented x3 HENMT Head: normal to inspection, normocephalic and atraumatic Mouth: oral mucosae normal Neck Neck: normal visual inspection and full ROM Chest Chest: normal inspection of the chest Resp Effort & Inspection: normal respiratory effort Auscultation: clear to auscultation bilaterally Cardio Rate: regular rate Rhythm: regular rhythm GI Inspection: normal to inspection Palpation: soft Auscultation: normal bowel sounds Skin General skin exam: no rashes or lesions noted Neuro General: patient alert, patient awake, patient oriented x3, tone normal, moves all extremities, no meningeal signs and no focal motor deficits Cranial Nerves: PERRL, EOM intact bilaterally and no nystagmus Cognition: normal cognition Speech: speech normal Gait: other (not tested, patient lying in bed post ipley maneuver. ) Motor: muscle tone normal throughout Extrem General: normal to inspection, full ROM and no pedal edema Psych Appearance: grossly normal Mental Status: mental status grossly normal Speech and Movement: speech and movement normal Mood: congruent mood Affect: normal affect Attitude: cooperative Thought Process: normal Thought Content: normal Insight: insight good Judgment: judgment good Results Labs Result diagrams: 10/14/21 07:15 10/14/21 07:15 Labs: Laboratory Results - last 24 hr 10/14/21 10/14/21 07:15 07:15 WBC 6.45 RBC 5.65 Hgb 14.4 Hct 44.0 MCV 78 L MCH 25.5 L MCHC 32.7 RDW 14.3 H Plt Count 163 MPV 10.3 Immature Gran % 1.2 Neutrophils % 74.3 Lymphocytes % 11.5 Monocytes % 9.6 Eosinophils % 2.5 Basophils % 0.9 Nucleated RBC % 0.0 Absolute Neutrophils 4.79 Absolute Lymphocytes 0.74 L Absolute Monocytes 0.62 Absolute Eosinophils 0.16 Absolute Basophils 0.06 Sodium 139 Potassium 3.9 Chloride 106 Carbon Dioxide 27.5 Anion Gap 5.5 BUN 18 Creatinine 0.9 Estimated GFR/1.73 m2 >= 60.00 Glucose 121 H Calcium 8.3 L Total Bilirubin 0.5 AST 25 ALT 43 Alkaline Phosphatase 67 Total Protein 6.5 Albumin 3.5 Last Vital Signs Temp 36.8 C 10/14/21 12:59 Pulse 55 L 10/14/21 12:59 Resp 16 10/14/21 11:47 BP 149/83 H 10/14/21 12:59 Pulse Ox 96 10/14/21 12:59
[2021-10-14 13:50] LABS: Source Nasal/Nares
[2021-10-14 15:03] LABS: COVID-19 PCR Negative (Negative)
--- NOTE | 2021-10-14 15:49 | PT.INIE ---
PT Notes Visit Reasons: Vertigo Inpatient Physical Therapy Evaluation Date: 10/14/21 Referring Doctor: Dinora Pugh PT Orders: PT CONSULT: vertigo Precautions: standard Patient Profile/Admitting Diagnosis: Patient admitted from ED for observation after presenting with acute onset vertigo with unremarkable MRI. PMHX: Vertigo (Acute) Hypertension (Chronic) Obstructive sleep apnea syndrome (Acute 11/25/15) Hyperlipidemia (Acute 12/14/12) Depressive disorder (Acute 12/14/12) Benign neoplasm of colon (Acute) Medical History? Chest pain atypical; neg. stress test; ? GERD Color vision deficiency Family history of cardiovascular disease (04/11/13) Family history of diabetes mellitus (04/11/13) Kidney stone (06/22/12) Social History/Home Situation: Patient lives in a private home with is . 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 Very active. Looking forward to his daughters and grandchildren arriving tonight from out of town. present and supportive throughout session. Equipment Owned/DME: none Subjective: Anival states that he awoke this morning with dizziness, sweating and nausea. He was able to walk around independently, but experienced episodic room spinning dizziness. Admits to vomiting twice at home, then again in the ED. Denies headache, hearing loss, tinnitus, visual changes, or fullness in ear. Objective: General Observation: Resting in bed. No lines. Mental Status: A&Ox3. Pleasant and cooperative throughout. Pain: denies ROM: Right Upper Extremity: WFL Left Upper Extremity: WFL Right Lower Extremity: WFL Left Lower Extremity: WFL Strength: not assessed Bed Mobility/Transfers: supine-sit: independent sit-stand: independent stand-sit: independent Gait: not assessed, although patient fully independent at baseline Balance: Static Sitting: normal Dynamic Sitting: normal Static Standing: normal Dynamic Standing: normal Special Tests: Cervical ROM WNL, and non-symptom provoking visual tracking normal VOR intact George-Halpike (+) right, slight right upbeating nystagmus (negative George-Halpike to the left) Mobility Limitations Standardized Measure [facility] AM-PAC 6 clicks Basic Mobility Inpatient Short Form: Raw Score: 24 CMS Score: 0% impairment Informed Consent/Education: Patient instructed in purpose of PT consult and plan of care. Treatment: Myron maneuver to the right side, 60 second holds, 3 reps. After first repetition, patient becomes nauseous and diaphoretic, requiring several minutes recovery before second rep. Minimal symptoms experienced on subequent repetitions. Patient education regarding outcomes and expectations. Instructed in post-treatment precautions, including head elevation and avoidance of bending over or quick head motions for 24 hours. Assessment: Patient is a 65 year old male referred to physical therapy services with the diagnosis of vertigo. Patient presents with clinical signs and symptoms consistent with right posterior canal BPPV, as demonstrated by the following impairment level findings: 1. room-spinning sensation with head motions 2. (+) George-Halpike to the right Impairments are contributing to the following functional limitations 1. decreased tolerance to bed mobility 2. decreased tolerance to ambulation Patient is assessed as Moderate 22436 complexity based on the following: History: Patient is a 65 year old male presenting with acute onset BPPV, with significant functional limitations resulting. Patient tolerated right sided Myron maneuver very well, and was resting comfortably at end of session. Complicating factors include acute onset severe symptoms requiring observation in hospital. Examination: functional limitations as noted above Presentation: evolving Decision Making: moderate complexity Goals: Goals X1 week 1. Gait: supervision without AD x 50' 2. able to tolerate transfers and bed mobility with manageable level of dizziness Plan of Care/Treatment Plan: 1-2x/day, 7 days/week x 1 week. Plan of care has been reviewed with the CASH MANAGEMENT OFFICER providing the service under Physical Therapy direction. Initiate Physical Therapy intervention for strengthening, bed mobility, transfers, gait, stairs, balance training, use of assistive device. DISCHARGE RECOMMENDATIONS: Home with outpatient PT for vestibular rehab TREATMENT CODE/TIME: 2:45- 3:35 ([id number], [id number]) Doretha Olson, PT, DPT [facility]
[2021-10-14] MEDS: diazePAM 2 MG TAB PO ×2 (16:38→20:17)
[2021-10-14] MEDS: Atorvastatin 40 MG TAB PO (20:17)
[2021-10-15 07:30] VITALS: BP 154/82; PULSE 60; RESP 15; TEMP 36.1; O2SAT 95
[2021-10-15] MEDS: Cholecalciferol (Vitamin D3) 1,000 UNIT TAB 5000 UNITS PO (07:43)
[2021-10-15] MEDS: diazePAM 2 MG TAB PO ×2 (07:43→11:47)
[2021-10-15] MEDS: Citalopram 20 MG TAB PO (07:43)
[2021-10-15] MEDS: Lisinopril 10 MG TAB PO (07:43)
--- NOTE | 2021-10-15 08:05 | PT.INTREAT ---
Date of service: 10/15/21 Time of Service: 07:26 PT Notes Visit Reasons: Vertigo Inpatient Physical Therapy Treatment Note [facility] Date: 10/15/2021 PRECAUTIONS: Dizziness, activity as tolerated, fall risk due to dizziness SUBJECTIVE: Anival reports that he is feeling better today while he is still and in bed. He reports that he felt better following initial PT session yesterday, which involved the Myron maneuver. OBJECTIVE: Nystagmus not appreciated with transfers PAIN: No c/o pain BED MOBILITY/TRANSFERS: Cueing for slow, segmented, purposeful movements with transfers and bed mobility to minimize dizziness and vertigo symptoms. Rolling L/R: I with HOB flat Supine-sit: I with HOB flat Sit-stand: I Stand-sit: I Bed-Chair: I Chair-bed: I GAIT Assistive Device: No AD Weight bearing: Full Assist: I Distance: 250' Deviation: None STAIRS: Up/down 3x4 and 2x6 using U rail and a step-over pattern independently ASSESSMENT: Patient tolerated gait training well, demonstrating independence without an assistive device. He becomes symptomatic with bed mobility, however, following instruction for slow, segmented and purposeful movements, patient is able to transfer without increased symptoms of dizziness. PLAN: Recommend follow up with outpatient PT for management of vertigo symptoms. TREATMENT CODE/TIME: 20 minutes; [id number] (07:26)
--- NOTE | 2021-10-15 11:56 | PT.INTREAT ---
Date of service: 10/15/21 Time of Service: 10:00 PT Notes Visit Reasons: Vertigo Date: 10/15/2021 PRECAUTIONS: Dizziness, activity as tolerated, fall risk due to dizziness SUBJECTIVE: Anival reports that he is doing better but did have some dizziness and had an episode of vomiting earlier today. OBJECTIVE: Nystagmus not appreciated with transfers ? PAIN: No c/o pain ? BED MOBILITY/TRANSFERS: Cueing for slow, segmented, purposeful movements with transfers and bed mobility to minimize dizziness and vertigo symptoms. ? Rolling L/R: I with HOB flat Supine-sit: I with HOB flat? Sitting: Primary gaze with fixation, no nystagmus Lateral gaze with fixation, no nystagmus Head impulse test, initially there was corrective saccades required for target accuracy but he actually improved in his tracking with increasing speed, as the VOR reacted more appropriately Supine roll test negative Loaded eldon diaz pike positive on the right with torsional nystagmus Patient was guided through 2 rounds of canilith repositioning Myron Maneuver. ? ASSESSMENT: Patient tolerated treatment well. Next phase is to wait for the brain accommodation period to see if his symptoms subside PLAN: Recommend follow up with outpatient PT for management of vertigo symptoms. TREATMENT CODE/TIME: 40 minutes; NRE [id number] x 3 (10:00am)
--- NOTE | 2021-10-15 12:40 | INITIAL_ITS ---
- If Service Date Differs Date of service: 10/15/21 Time of Service: 12:41 Care Management Initial Assess REASON FOR HOSPITALIZATION:: vertigo PAST MEDICAL HISTORY/PAST SURGICAL HISTORY:: All Active Problems (Updated 10/14/21 @ 07:28 by Marbin Madden DO). Vertigo (Acute). Hypertension (Chronic). Obstructive sleep apnea syndrome (Acute 11/25/15). Hyperlipidemia (Acute 12/14/12). Depressive disorder (Acute 12/14/12). Benign neoplasm of colon (Acute). Medical History . Chest pain. atypical; neg. stress test; ? GERD. Color vision deficiency. Family history of cardiovascular disease (04/11/13). Family history of diabetes mellitus (04/11/13). Kidney stone (06/22/12). Surgical History . Arthroplasty of knee. RIGHT 2002. LEFT 2008. Stent placement. 06/2007-LEFT URETERAL STENT PLACED; CYSTOURETHROSCOPY;DR. HAMILTON. Tonsillectomy PREVIOUS FUNCTIONAL STATUS/SOCIAL/FAMILY SUPPORTS:: Anival lives in [facility] with his Elizabeth. he does not have any children of his own but has 4 step children. he is independent at baseline. CURRENT FUNCTIONAL STATUS:: Anival was sitting up in a chair when CM met with him. He was dressed and preparing to discharge home with his . He is scheduled for outpatient PT with Lalitha on 10/19/21 at 4pm. He denied the need for any additional services. ADVANCE DIRECTIVES:: none on file Has patient been provided with info about the portal/API?: Yes Did the patient sign up for the portal?: No CODE STATUS:: Full Code INSURANCE COVERAGE / FINANCIAL ISSUES:: Medicare. [facility] CURRENT HOME/COMMUNITY SERVICES/EQUIPMENT:: none PRIMARY CARE PHYSICIAN:: Gi Reddy POTENTIAL DISCHARGE NEEDS:: follow up with PCP and plan of care PATIENT/FAMILY EDUCATION NEEDS:: Review of discharge instructions, limitations, medications, activity, follow up plan, discuss Assk Me Three TRANSPORTATION:: via private vehicle with family PLAN:: Anival will be discharged home with OP PT. He will follow up with his PCP and plan of care and transport with family. CM will continue to assess for and support discharge needs.
--- NOTE | 2021-10-15 13:41 | W.PM.DS.N ---
Date of service: 10/15/21 Time of Service: 13:42 DS: Diagnosis Discharge Diagnosis (1) Vertigo: Status: Acute (2) Hypertension: Status: Chronic (3) Hyperlipidemia: Status: Acute (4) Depressive disorder: Status: Acute Discharge Plan Disposition Patient Disposition: HOME Condition: Good Discharge Details Reason For Visit: Vertigo Admit Date/Time: 10/14/21 13:25 Admit Provider: Donnie Bauman Attending Provider: Donnie Bauman Primary Care Provider: [facility] Course Hospital Course: This is a 65 year old male with history of hypertension, hyperlipidemia, SAURAV on cpap at , who had a sudden onset of dizziness that started while sleeping which he states awoke him in the am.?He presented to the ED for evaluation as he was having ongoing nausea, vomiting and dizziness.? central etiology ruled out by MRI.? He was given meclizine and ativan and was looking like he could be discharged but with ambulation developed nausea and vomiting again. hospitalist services contacted for observation stay for symptom management and PT referral.? He was seen by PT who performed florencia maneuver with some improvement in his symptoms. He was started on scheduled valium. overnight he rested comfortably with no c/o. he felt much improved in am and was ambulating in the halls. he ate breakfast and while walking around his room developed the symptoms again. He was given zofran and scheduled valium as ordered. His symptoms improved again. He was re-evaluated by PT and procedure repeated with good effect. He is now tolerating PO with no issue. He is safe for discharge to home and will continue to follow up outpatient with PT. prescriptions for meclizine and zofran sent to his pharmacy. no other services on discharge. discussed with DR Bauman. Home Meds and New Rx's Prescriptions: New meclizine 25 mg tablet 25 mg PO TID PRN (Reason: dizziness) Qty: 20 0RF ondansetron HCl 4 mg tablet 4 mg PO Q6H PRNQty: 20 0RF Continued cholecalciferol (vitamin D3) 5,000 unit capsule 5,000 unit PO DAILY Label Comments: 12/05/18 sometimes forget it. si lisinopril 10 mg tablet 10 mg PO DAILY Qty: 90 4RF atorvastatin 40 mg tablet 40 mg PO QPM Qty: 90 4RF citalopram 20 mg tablet 20 mg PO DAILY Qty: 90 4RF Discharge Instructions Instructions: Vertigo (ED) Additional Instructions: Please sleep with head of the bed elevated for the next 2-3 nights. There is some evidence that physical therapy can assist in resolving peripheral vertigo, keep your scheduled appointment for Monday if still having symptoms. Meclizine as needed distant dizziness. Return to the ER for any acute concerns. The radiologist recommend you have a follow-up MRI with gadolinium. results show: IMPRESSION: 1. No evidence of an acute infarct. 2. 1 cm mass in the right lateral ventricle.? Postcontrast MRI of the brain is recommended for further evaluation.? This may represent a benign lesion such as a subependymoma or choroid plexus lesion. This should be followed up outpatient with primary care provider for further evaluation. It is not thought to be contributing to you symptoms. Stand Alone Forms: Physical Therapy Referral, Nursing Discharge Form Referrals: Gi Reddy NP [Primary Care Provider] - 10/21/21 1:40 pm Activity:: Activity as Tolerated Equipment/Supplies:: No Equipment Needed Diet:: As Tolerated Discharge Orders Discharge Orders: Discharge Order (Routine); Ordered 10/15/21 Ordered By: Dinora Pugh Discharge Data Discharge Date/Time-TO BE ENTERED AT DEPARTURE: 10/15/21 14:50 DS: Summary Time Spent with Patient providing and/or coordinating discharge services: Less than 30 minutes Status at Discharge Functional status at discharge: independent ambulation Overall status at discharge: patient is progressing back to baseline Mental Status: mental status grossly normal Speech and Movement: speech and movement normal Mood: congruent mood Affect: normal affect Exam Const General: cooperative, healthy appearing, comfortable and no acute distress Nutritional Appearance: average body habitus Orientation: alert, awake and oriented x3 HENMT Head: normal to inspection, normocephalic and atraumatic Mouth: oral mucosae normal Neck Neck: normal visual inspection and full ROM Chest Chest: normal inspection of the chest Resp Effort & Inspection: normal respiratory effort Auscultation: clear to auscultation bilaterally Cardio Rate: regular rate Rhythm: regular rhythm GI Inspection: normal to inspection Palpation: soft Auscultation: normal bowel sounds Skin General skin exam: no rashes or lesions noted Neuro General: patient alert, patient awake, patient oriented x3, tone normal, moves all extremities, no meningeal signs and no focal motor deficits Cranial Nerves: PERRL, EOM intact bilaterally and no nystagmus Cognition: normal cognition Speech: speech normal Motor: muscle tone normal throughout Extrem General: normal to inspection, full ROM and no pedal edema Psych Appearance: grossly normal Mental Status: mental status grossly normal Speech and Movement: speech and movement normal Mood: congruent mood Affect: normal affect Attitude: cooperative Thought Process: normal Thought Content: normal Insight: insight good Judgment: judgment good DS: Data Vitals/I&O Vitals and I&O: Vital Signs Temperature 36.1 C L 10/15/21 07:30 Temperature Source Tympanic 10/15/21 07:30 Pulse 60 10/15/21 07:30 Pulse Rhythm Regular 10/15/21 07:10 Respiratory Rate 15 10/15/21 07:30 Respiratory Effort Non-Labored 10/15/21 07:10 Respiratory Depth Normal 10/15/21 07:10 Respiratory Pattern Normal 10/15/21 07:10 Blood Pressure 154/82 H 10/15/21 07:30 Blood Pressure Position Supine 10/14/21 06:43 Pulse Oximetry 95 10/15/21 07:30 Oxygen Delivery Method Room Air 10/15/21 07:30 Oxygen Flow Rate 0 10/15/21 07:30 Pain Level 0 10/15/21 07:30 Intake & Output 10/14/21 10/15/21 10/15/21 23:59 11:59 23:59 Output Total 900 / 1500 600 / 1500 Balance -900 / -1500 -600 / -1500 Weight 94.9 kg Output: Urine 600 / 1200 600 / 1200 Emesis 300 / 300 Other: Urine Color Yellow Yellow Urine Appearance Clear Clear Clear Urine Odor Normal Emesis Description Undigested Food Bile Voiding Methods Toilet Toilet Data Completed and Pending Labs on day of discharge: Labs from last 24 hours 10/14/21 13:45 COVID-19 Source Nasal/Nares SARS-CoV-2 (PCR) Negative PFSH All Active Problems (Updated 10/14/21 @ 07:28 by Marbin Madden DO) Vertigo (Acute) Hypertension (Chronic) Obstructive sleep apnea syndrome (Acute 11/25/15) Hyperlipidemia (Acute 12/14/12) Depressive disorder (Acute 12/14/12) Benign neoplasm of colon (Acute) Medical History Chest pain atypical; neg. stress test; ? GERD Color vision deficiency Family history of cardiovascular disease (04/11/13) Family history of diabetes mellitus (04/11/13) Kidney stone (06/22/12) Surgical History Arthroplasty of knee RIGHT 2003 LEFT 2009 Stent placement 06/2007-LEFT URETERAL STENT PLACED; CYSTOURETHROSCOPY;DR. HAMILTON Tonsillectomy Family History Mother , 90 Diabetes Heart disease Father , 45 Heart disease Alcohol abuse Diabetes Sister Heart disease Stroke Brother Alcohol abuse Depression Maternal Grandfather , 70 Cancer Paternal Grandfather , 67 No problems noted. Maternal Grandmother , 69 No problems noted. Paternal Grandmother , 80 No problems noted. Sister Depression Sister No problems noted. Brother Diabetes Daughter No problems noted. Daughter No problems noted. Social History Smoking/Tobacco Use Status: Former Tobacco Use Quit Date: 04/17/99 Tobacco: How many years used: 8 Second Hand Exposure: Yes Smoking risk assessment performed?: Yes Alcohol Intake: current Alcohol Intake frequency: 0-2 drinks per day Alcohol type: beer Drug use: Never Caregiver/Support person: No Household members: spouse Housing: house Communication Needs: None Do you need help understanding health information?: Always Pets and animals: No Sexually active: No Do you think of yourself as: straight/heterosexual Current gender identity: male What is your relationship status?: How often do you talk on the phone with friends or family?: three or more times per week How often do you get together with friends or relatives?: twice per week How often do you attend oriental orthodox or taoism services?: 4 or more times per year Panel score (0-1 are the most socially isolated patients): 3 What type of physical activity do you participate in: running Duration: 15-30 minutes/day Frequency: 5-6 times per week Zaria/Congregational: L[employer] Day Special zaria needs: No Seatbelt use: always Helmet use: Yes Helmet use: always Drive intox or ride w/intox armor reconnaissance vehicle driver: No Do you feel safe at home: Yes Do you feel safe in your relationship?: Yes
--- NOTE | 2021-10-19 09:48 | PT.INDS ---
PT Notes Visit Reasons: Vertigo Inpatient Physical Therapy Discharge Summary Dates: 10/19/2021 Dates of Service: 10/14 to 10/15/2021 total 3 visits SUBJECTIVE: Patient notes significant improvement in his vertical compared to preadmission OBJECTIVE: Pain: None mentioned ROM: Full functional pain-free range of motion throughout STRENGTH: Full motor control and strength is rated 5/5 BED MOBILITY/TRANSFERS: Independent with all bed mobility activities GAIT: Ambulates independently for greater than 300 feet without gait deviations or vertigo BALANCE: Static and dynamic sitting and standing balance are normal ASSESSMENT: Patient was admitted with acute vertigo and responded well to treatment. He is now minimally symptomatic and has follow-up appointment on 10/19 with outpatient physical therapy GOALS Met DISCHARGE PLAN/RECOMMENDATIONS: Home with outpatient PT This document serves as a summary of care. No PT services were provided on this date.
== END 2021-10-15 14:50 | disposition home or self-care (01) ==
LOC: ER 13:08 → MS 14:49
PROVIDERS: Emergency Medicine; Admitting Provider Family Medicine; Emergency Provider Student in an Organized Health Care Education/Training Program; PCP Nurse Practitioner; Visit Provider Family Medicine
DX: R42 Dizziness and giddiness (principal); I10 Essential (primary) hypertension; R90.89 Other abnormal findings on diagnostic imaging of central nervous system; Z79.899 Other long term (current) drug therapy; G47.33 Obstructive sleep apnea (adult) (pediatric); E78.5 Hyperlipidemia, unspecified; E78.00 Pure hypercholesterolemia, unspecified; F32.A Depression, unspecified; Z96.653 Presence of artificial knee joint, bilateral; Z87.891 Personal history of nicotine dependence
CPT/HCPCS: 80053; 87635; 93005; 96361; 96374; 97112; 97166; 97530; 99285; 70450; 70551; 85025; 93010; 99217; 99219; G0378; J2405; J3490

== ENCOUNTER → 2021-11-04 00:30 | Outpatient (CLI) | payer MEDICARE, OTHER, SELFPAY ==
--- OUTSIDE RECORDS SUMMARY | 2021-11-04 00:41 | XMS_ITS | Encounter Summary ---
:1955 Author Organization Health system Address [address] [place] [address] Care Team Providers Name Role Phone Unavailable Primary Care Provider Unavailable Encounter Details Date Type Department Care Team Description 04/11/2007 Results Only [facility] - Griffin Cano MD conversion [address] [facility] [address] [place], [place] [id number] [place] [id number] [phone] Social History Tobacco Use Types Packs/Day Years Used Date Never Assessed Sex Assigned at Date Recorded Not on file documented as of this encounter Plan of Treatment Not on filedocumented as of this encounter Procedures Procedure Name Priority Date/Time Associated Diagnosis Comme nts SURGICAL PATHOLOGY Routine 04/11/2007 0:00 EST Re sults for this procedure are i n the results section. documented in this encounter Results SURGICAL PATHOLOGY (04/11/2007 0:00 EST) Pathology Report: SURGICAL PATHOLOGY REPORT [facility] Reports generated via electronic interface contain johanne ginal data; LAB however they are lacking the format of the original re port. Caution should be taken when reading/interpreting unfo rmatted reports. Name: ? DEISI KYLE ? Accession #: ? [id number] ? : ? 1955 (Age: 51) ??M ? Collect Date: ? 04/11/2007 ? Location: ? [facility] ? Receive Date: ? 04/11/20 07 ? Provider: GRIFFIN CALLES MD Copy to: AMBROCIO VALDIVIA ? Final Pathologic Diagnosis: ? Colon, 20 cm, polyp, biopsy: - Hyperplastic polyp (one piece) with cautery changes; no adenoma. Document reviewed and electronically signed by: Ck Landon MD Report ??Date: 04/13/2007 10:36 By the signature above, the attending physician certif ies that he/she has personally conducted a gross and/or microscopic examin ation of the described specimens and rendered or confirmed the above diagnosi s. Specimen(s) Received: ? Polyp at 20 cm Clinical History: ? Multiple small rectosigmoid polyps Gross Description: ? Received in Hollande' s fixative labelled [place] and polypoid 20 cm is a corona-pink 0.2 x 0.2 x 0. 2 cm soft tissue fragment. ??The specimen is entirely submitted in one cassette. ??(Jairo Porter/jere End of Report Specimen Performing Organization Address City/State/ZIP Code Phon e Number [facility] [address] [place] [address] SERVICES [facility] [address] [place] [address] documented in this encounter Visit Diagnoses Not on filedocumented in this encounter
--- OUTSIDE RECORDS SUMMARY | 2021-11-04 00:41 | XMS_ITS | Encounter Summary ---
:1955 Author Organization [facility] [place] [address] Care Team Providers Name Role Phone Andrea DAVIS MD, Lloyd L Primary Care Provider [phone] Reason for Referral Consultation (Routine) - Authorized Specialty Diagnoses / Procedures Referred By Contact Refer red To Contact Orthopaedics Diagnoses Left knee pain, unspecified chronicity LEFT KNEE PAIN Gi Reddy, [facility] CERTIFIED FORKLIFT OPERATOR [place] [address] [place] [address] [address] [place], [place] [address] Referral ID Status Reason Start Expiration Visits Visits Date Date Requested Authorized [id number] Authorized Consult, 10/28/2021 10/28/2022 6 6 Test & Treat PCP Updated and/or Approved Encounter Details Date Type Department Care Team Description 10/28/2021 Transcribe Orders eDH Incoming Gi Reddy nee pain, unspecified chronicity; Referrals L, CERTIFIED FORKLIFT OPERATOR Viral warts, unspecified type [phone] [place] [address] [address] [facility] [address] [place], [place] [address] Social History Tobacco Use Types Packs/Day Years Used Date Never Assessed Sex Assigned at Date Recorded Not on file documented as of this encounter Plan of Treatment Scheduled Referrals Name Type Priority Associated Diagnoses Order S chedule Referral to Outpatient Referral Routine Left knee pain, Order ed: Orthopaedics unspecified 10/28/2021 chronicity Viral warts, unspecified type documented as of this encounter Visit Diagnoses Diagnosis Left knee pain, unspecified chronicity Viral warts, unspecified type documented in this encounter Care Teams Cardiopulmonary Technician And Eeg Tech Relationship Specialty Start Date End Date Tirso Mendez III, MD PCP - General 03/09/10 [address] [place] [address] documented as of this encounter
--- OUTSIDE RECORDS SUMMARY | 2021-11-04 00:41 | XMS_ITS | Encounter Summary ---
:1955 Author Organization [facility] Address [address] [place] [address] Care Team Providers Name Role Phone Unknown, Provider Primary Care Provider Encounter Details Date Type Department Care Team Description 02/14/2017 Hospital Encounter [facility] - S Unknown, Pro Cookie landers MD [address] [facility] [phone] [place] [address] (Work) [phone] Social History Tobacco Use Types Packs/Day Years Used Date Never Assessed Sex Assigned at Date Recorded Not on file documented as of this encounter Discharge Disposition Disposition Code Departure Means Destination Home or Self [facility] documented in this encounter Plan of Treatment Not on filedocumented as of this encounter Visit Diagnoses Not on filedocumented in this encounter Care Teams Anodizer Relationship Specialty Start Date End Date Unknown, Provider, PCP - General 02/24/15 documented as of this encounter
--- OUTSIDE RECORDS SUMMARY | 2021-11-04 00:41 | XMS_ITS | Encounter Summary ---
:1955 Author Organization [facility] Address [address] [place] [id number] Care Team Providers Name Role Phone Unknown, Provider Primary Care Provider Encounter Details Date Type Department Care Team Description 11/30/2016 Results Only [facility]- Parvin Schmidt, MD Ber[address] [facility] [address] [place] [id number] (Wo rk) Social History Tobacco Use Types Packs/Day Years Used Date Never Assessed Sex Assigned at Date Recorded Not on file documented as of this encounter Plan of Treatment Not on filedocumented as of this encounter Procedures Procedure Name Priority Date/Time Associated Diagnosis Comme nts SURGICAL PATHOLOGY Routine 11/30/2016 17:40 Resul ts for this EDT procedure are i n the results section. documented in this encounter Results SURGICAL PATHOLOGY (11/30/2016 17:40 EDT) Pathology Report: SURGICAL PATHOLOGY REPORT [facility] Reports generated via electronic interface contain johanne ginal data; LABORATORY however they are lacking the format of the original re port. SERVICES Caution should be taken when reading/interpreting unfo rmatted reports. Name: ? DEISI KYLE P ? Accession #: ? [id number] ? : ? 1955 (Age: [age]) ??M ? Collect Date: ? 11/30/2016 ? Location: ? [facility] ? Receive Date: ? 12/02/19 17 ? Provider: PARVIN FREY MD Copy to: ? Final Pathologic Diagnosis: SKIN OF FOREARM, RIGHT, SHAVE BIOPSY: - Fragments of orthohyperkeratosis. ??See comment. Comment: Despite deeper levels, there is no epidermis present for evaluation, precluding assessment. ??Present are fragments of o rthohyperkeratosis. ??(Dr. Beard)/n Document reviewed and electronically signed by: EPHRAIM BEARD MD Report ??Date: 12/06/2016 08:10 By the signature above, the attending physician certif ies that he/she has personally conducted a gross and/or microscopic examin ation of the described specimens and rendered or confirmed the above diagnosi s. Specimen(s) Received: R arm shave biopsy Clinical History: Probable actinic keratosis Gross Description: ? Received in formalin labelled with proper patient identification (initials D, F) and Rt forearm are s everal pale corona fragments of tissue which range from 0.2 x 0.1 x 0.1 cm to 0.1 x 0.1 x 0.1 cm. Submitted in tact in 1. SHEA Moyer (ASCP) 12/02/2016 8:40 AM End of Report Specimen Performing Organization Address City/State/ZIP Code Phon e Number [facility] [address] [place] [address] SERVICES documented in this encounter Visit Diagnoses Not on filedocumented in this encounter Care Teams Shoe Repairer Apprentice Relationship Specialty Start Date End Date Unknown, Provider, PCP - General 02/24/15 documented as of this encounter
--- OUTSIDE RECORDS SUMMARY | 2021-11-04 00:41 | XMS_ITS | Encounter Summary ---
:1955 Author Organization [facility] Address [address] [place] [address] Care Team Providers Name Role Phone Unknown, Provider Primary Care Provider Encounter Details Date Type Department Care Team Description 02/14/2017 Results Only [facility]- Alfredo Bautista MD [phone] [place] [address] [phone] Social History Tobacco Use Types Packs/Day Years Used Date Never Assessed Sex Assigned at Date Recorded Not on file documented as of this encounter Plan of Treatment Not on filedocumented as of this encounter Procedures Procedure Name Priority Date/Time Associated Diagnosis Comme nts SURGICAL PATHOLOGY Routine 02/14/2017 9:09 Resul ts for this EDT procedure are i n the results section. documented in this encounter Results SURGICAL PATHOLOGY (02/14/2017 9:09 EDT) Pathology Report: SURGICAL PATHOLOGY REPORT [facility] Reports generated via electronic interface contain johanne ginal data; LABORATORY however they are lacking the format of the original re port. SERVICES Caution should be taken when reading/interpreting unfo rmatted reports. Name: ? DEISI KYLE P ? Accession #: ? [id number] ? : ? 1955 (Age: [age]) ??M ? Collect Date: ? 02/14/2017 ? Location: ? [facility] ? Receive Date: ? 7 ? Provider: ALFREDO FRANCIS MD Copy to: ? Final Pathologic Diagnosis: A. COLON, SIGMOID POLYP, BIOPSY: - ??Hyperplastic polyp. - ??Deeper levels examined. B. COLON, SIGMOID POLYP, BIOPSY: - ??Colonic mucosa with no specific pathologic feature s. Document reviewed and electronically signed by: SHERWIN MCKEON MD Report ??Date: 02/17/2017 08:20 By the signature above, the attending physician certif ies that he/she has personally conducted a gross and/or microscopic examin ation of the described specimens and rendered or confirmed the above diagnosi s. Specimen(s) Received: A. ??Sigmoid polyp B. ??Sigmoid biopsy Clinical History: Screening; clinical diagnosis code: Z12.11 Gross Description: A. ?Received in formalin labelled with proper p atient identification (initials D, F) and sigmoid polyp is a single light corona tissue fragment (0.4 x 0.1 x 0.1 cm). Submitted intact in A1. B. ?Received in formalin labelled with proper p atient identification (initials D, F) and sigmoid biopsy is a single white tissue fragment (0.6 x 0.1 x 0.1 cm). Submitted intact in B1. Gladis Cole 02/16/2017 9:47 AM End of Report Specimen Performing Organization Address City/State/ZIP Code Phon e Number [facility] [address] [place] [id number] SERVICES documented in this encounter Visit Diagnoses Not on filedocumented in this encounter Care Teams Television Repairman Relationship Specialty Start Date End Date Unknown, Provider, PCP - General 02/24/15 documented as of this encounter
--- OUTSIDE RECORDS SUMMARY | 2021-11-04 00:41 | XMS_ITS | Clinical Summary ---
:1955 Author Organization [facility] Address [address] [place] [address] Care Team Providers Name Role Phone Unknown, Provider Primary Care Provider Social History Tobacco Use Types Packs/Day Years Used Date Never Assessed Sex Assigned at Date Recorded Not on file Plan of Treatment Health Maintenance Due Date Last Done Comments Fall Risk Screening 2018 Care Teams Steel Wool Machine Operator Relationship Specialty Start Date End Date Unknown, Provider, PCP - General 02/24/15
--- OUTSIDE RECORDS SUMMARY | 2021-11-04 00:41 | XMS_ITS | Clinical Summary ---
:1955 Author Organization [facility] [place] [address] Care Team Providers Name Role Phone Andrea DAVIS MD, Lloyd L Primary Care Provider [phone] Encounters Date Type Specialty Care Team Description 10/28/2021 Transcribe Orders Primary Care Gi Reddy, Lef t knee pain, unspecified chronicity; BRAND ANALYST Viral warts, un specified type from Last 3 Months Social History Tobacco Use Types Packs/Day Years Used Date Never Assessed Sex Assigned at Date Recorded Not on file Plan of Treatment Health Maintenance Due Date Last Done Comments Covid-19 Vaccine (#1) 1958 Hepatitis C Screening 11/10/1971 Lipid Screening 11/10/1971 Tdap adult 1972 Tetanus vaccine 1972 Colonoscopy 1998 Zoster vaccine (1 of 2) 11/10/2003 Advance Directive 2008 Pneumoccocal Vaccine: 65+ (1 - PCV) 2018 Influenza (Flu) vaccine (1 of 1 - Influenza standard 12/16/2021 series) Procedures Procedure Name Priority Date/Time Associated Diagnosis Comme nts LAB SCAN 10/21/2021 12:00 AM Results for this EDT procedure are i n the results section . from Last 3 Months Results SCAN DOC: LAB (10/21/2021 12:00 AM EDT) Narrative This result has an attachment that is no t available. Unknown MEDIA MGR SCAN EXT ORDR/RSLT from Last 3 Months Insurance Payer Benefit Plan / Subscriber ID Effective Dates Phone Addre ss Type Group MEDICARE MEDICARE PART A [id number] 2021-Present [phone] [employer] SECURITY & [place] [id number] Care Teams Automatic Lathe Operator Relationship Specialty Start Date End Date Tirso Mendez III, MD PCP - General 03/09/10 [address] [place], [place] [address]
--- OUTSIDE RECORDS SUMMARY | 2021-11-04 00:41 | XMS_ITS | Encounter Summary ---
:1955 Author Organization [facility] Address [address] [place] [address] Care Team Providers Name Role Phone Unknown, Provider Primary Care Provider Encounter Details Date Type Department Care Team Description 02/04/2019 Results Only [facility]- Parvin Schmidt, MD [address] [place] [phone] (Wo rk) Social History Tobacco Use Types Packs/Day Years Used Date Never Assessed Sex Assigned at Date Recorded Not on file documented as of this encounter Plan of Treatment Not on filedocumented as of this encounter Procedures Procedure Name Priority Date/Time Associated Diagnosis Comme [facility] SURGICAL PATHOLOGY Routine 02/04/2019 8:19 EDT Re sults for this procedure are i n the results section. documented in this encounter Results SURGICAL PATHOLOGY (02/04/2019 8:19 EDT) Pathology Report: SURGICAL PATHOLOGY REPORT [facility] Reports generated via electronic interface contain johanne ginal data; LABORATORY however they are lacking the format of the original re port. SERVICES Caution should be taken when reading/interpreting unfo rmatted reports. Name: ? DEISI KYLE P ? Accession #: ? [id number] ? : ? 1955 (Age: 4 5) ??M ? Collect Date: ? 02/04/2019 ? Location: ? [facility] ? Receive Date: ? 019 ? Provider: PARVIN MALDONADO MD Copy to: ? 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 Document reviewed and electronically signed by: EPHRAIM SIMS MD Report ??Date: 02/05/2019 16:40 By the signature above, the attending physician certif ies that he/she has personally conducted a gross and/or microscopic examin ation of the described specimens and rendered or confirmed the above diagnosi s. Specimen(s) Received: L inner thigh lesion Clinical History: ? Thigh lesion L Gross Description: ? Received in formalin labelled with proper patient identification (initials D, F) and L inner thigh is a shave biopsy of an irre gular corona-white skin lesion (1.2 x 0.7 x 0.1 cm). The margin is inked blue. Trisected and submitted in 1. Gladis Cole 02/05/2019 8:31 AM End of Report Specimen Performing Organization Address City/State/ZIP Code Phon e Number [facility] [address] [place] [address] SERVICES documented in this encounter Visit Diagnoses Not on filedocumented in this encounter Care Teams Android Developer Relationship Specialty Start Date End Date Unknown, Provider, PCP - General 02/24/15 documented as of this encounter
[2021-11-04] MEDS: Gadoterate meglumine 20 ML SYRINGE IVP (08:16)
--- NOTE | 2021-11-04 08:20 | DI.MRI_ITS ---
Exam(s) MR BRAIN W EXAM: MR BRAIN W CLINICAL HISTORY: repeat with MAYLIN, abnl mri of head, R93.0 TECHNIQUE: Multiplanar multisequence MRI of the brain was performed. T1 weighted post contrast infu sed sequences were performed. All 3 planes. Also repeated few conventional sequences, including rep eating the DWI. IV Contrast injected was 20 cc Dotarem. COMPARISON: MR MR BRAIN WO from 10/14/[address] HEAD WO from 10/14/2021 FINDINGS: There is no evidence of intracranial hemorrhage. No ring enhancing lesions in the brain nor abnormal meningeal enhancement. There is no abnormal enhancing structure in the right lateral ventricle and indeed this previously described abnormal structure in the right lateral ventricle is not evident on T1 imaging, both pre and post contrast. It also does not exhibit enhancement on the MP rage sequence s PITUITARY GLAND: No mass nor parasellar abnormality. No obvious abnormality in the cavernous sinuses. FLOW VOIDS: The expected flow void are noted. No evidence of obvious aneurysm nor obvious vascular ma lformation. PARANASAL SINUSES: The visualized paranasal sinuses appear unremarkable. ORBITS: No obvious abnormal findings. IMPRESSION: 1. No significant finding on this contrast infused MRI study. The 1 cm round structure in the right lateral ventricle seen on the recent conventional sequences is not evident on these postcontrast sequ ences. Ventricles exhibit normal size. No intraventricular mass seen. 2. Recommend repeat scan with T2 imaging in 3 months to ensure stability. DATA REPOSITORY:
== END ==
PROVIDERS: PCP Nurse Practitioner; Visit Provider Nurse Practitioner
DX: R93.0 Abnormal findings on diagnostic imaging of skull and head, not elsewhere classified (principal)
CPT/HCPCS: 70552

== ENCOUNTER → 2022-01-21 00:57 | Outpatient (CLI) | payer MEDICARE, OTHER, SELFPAY ==
--- NOTE | 2022-01-21 06:30 | DI.MRI_ITS ---
Exam(s) MR BRAIN WO EXAM: MR BRAIN WO CLINICAL HISTORY: 3 mo f/u with T2,F/U ABNL MRI OF HEAD,R93.0,MASS RT LATERAL VENTRICLE TECHNIQUE: Multiplanar multisequence MRI of the brain was performed. COMPARISON: MR MR BRAIN WO from 10/14/2021 FINDINGS: CEREBRAL PARENCHYMA: The previously described finding in the right lateral ventricle is unchanged, again measuring approxi mately 10 x 10 millimeters. No evidence of asymmetric ventriculomegaly. There is no restricted diff usion at this level nor elsewhere in the brain. No additional new findings identified. Remainder of the brain appears unremarkable. There is no significant focal signal abnormality in the cerebellar hemispheres nor within the antony, m idbrain, and thalami. There is no abnormal signal abnormality in the periventricular white matter. There is no significant focal signal abnormality evident on diffusion imaging to suggest acute ischem ic event. PITUITARY GLAND: No mass nor parasellar abnormality. No obvious abnormality in the cavernous sinuses. FLOW VOIDS: The expected flow void are noted. No evidence of obvious aneurysm nor obvious vascular ma lformation. PARANASAL SINUSES: There is mucosal thickening now evident in the right maxillary sinus, more so than previous. No associated fluid. Other paranasal sinuses are clear. No abnormal signal in the masto id air cells. ORBITS: No obvious findings. IMPRESSION: Stable appearance of the previously described 1 cm polypoid appearing mass in the right lateral ventr icle. This is unchanged from MRI scan of 10/14/2021 No evidence of asymmetric ventriculomegaly. DATA REPOSITORY:
== END ==
PROVIDERS: PCP Nurse Practitioner; Visit Provider Nurse Practitioner
DX: R93.0 Abnormal findings on diagnostic imaging of skull and head, not elsewhere classified (principal)
CPT/HCPCS: 70551

== ENCOUNTER 2022-02-14 03:09 | Outpatient (CLI) | payer MEDICARE, SELFPAY ==
[2022-02-14 13:13] LABS: CREATININE 0.9 mg/dL (0.70-1.30); Calculated LDL 89 mg/dL (<100); Cholesterol 154 mg/dL (<200); Estimated GFR 93.03 (mL/min/1.73m2); HDL Cholesterol 51 mg/dL (40-60); Potassium 4.2 mmol/L (3.5-5.1); Triglyceride 71 mg/dL (<150)
== END 2022-02-14 03:10 | disposition home or self-care (01) ==
PROVIDERS: PCP Nurse Practitioner Family; Visit Provider Nurse Practitioner
DX: I10 Essential (primary) hypertension (principal); E78.5 Hyperlipidemia, unspecified
CPT/HCPCS: 36415; 80061; 82565; 84132

== ENCOUNTER 2022-10-17 01:13 | Outpatient (CLI) | payer MEDICARE, OTHER, SELFPAY ==
--- NOTE | 2022-10-17 07:15 | DI.RAD_ITS ---
Exam(s) XR KNEE LT 3V AP,LAT,BRIANDA EXAM: XR KNEE LT 3V AP,LAT,BRIANDA CLINICAL HISTORY: mass behind knee, LROM, LT KNEE PAIN, M25.562. TECHNIQUE: 2D digital imaging was performed. Three views. COMPARISON: No exams were available for comparison FINDINGS: BONES: No acute fracture is present. No old fracture deformity. No bony destructive lesion is seen . JOINTS: Narrowing of the femoral tibial joint spaces, greater laterally. Periarticular spurring. No joint effusion is seen. SOFT TISSUE: BB marker placed over palpable abnormality in the posterior knee. No abnormality is vis ible. Popliteal cysts could be considered. IMPRESSION: Degenerative changes. DATA REPOSITORY: RADIATION DOSE DELIVERED:
== END 2022-10-17 01:33 ==
PROVIDERS: PCP Nurse Practitioner Family; Visit Provider Nurse Practitioner Family
DX: M17.12 Unilateral primary osteoarthritis, left knee (principal)
CPT/HCPCS: 73562

== ENCOUNTER → 2023-02-06 08:00 | Outpatient (BNVA) | payer MEDICARE, OTHER, SELFPAY | PROVIDERS: PCP Nurse Practitioner Family; Referring Provider Nurse Practitioner Family; Visit Provider Student in an Organized Health Care Education/Training Program | DX: M71.22 Synovial cyst of popliteal space [Baker], left knee (principal); M17.12 Unilateral primary osteoarthritis, left knee | CPT/HCPCS: 99213 ==

== ENCOUNTER 2023-02-08 04:03 | Outpatient (CLI) | payer MEDICARE, OTHER, SELFPAY ==
[2023-02-08 13:01] LABS: ALT 29 U/L (16-63); AST 19 U/L (15-37); Alkaline Phosphatase 63 U/L (46-116); Anion Gap 8.6 mmol/L (3-11); BUN 13 mg/dL (7-18); Bilirubin, Total 0.6 mg/dL (0.2-1.0); CO2 28.4 mmol/L (21.0-32.0); Calculated LDL 188 mg/dL (<100); Chloride 103 mmol/L (98-107); Cholesterol 265 mg/dL (<200); Estimated GFR 81.47 (mL/min/1.73m2); Glucose 97 mg/dL (74-106); HDL Cholesterol 61 mg/dL (40-60); Potassium 4.2 mmol/L (3.5-5.1); Sodium 140 mmol/L (136-145); Total Protein 7.3 g/dL (6.4-8.2); Triglyceride 80 mg/dL (<150)
[2023-02-08 13:12] LABS: Hemoglobin A1C 5.5 % (<5.7)
== END 2023-02-08 04:04 | disposition home or self-care (01) ==
LOC: LOS 04:03
PROVIDERS: PCP Nurse Practitioner Family; Visit Provider Nurse Practitioner Family
DX: E78.5 Hyperlipidemia, unspecified (principal); R73.9 Hyperglycemia, unspecified
CPT/HCPCS: 36415; 80053; 80061; 83036

== ENCOUNTER 2023-05-12 01:44 | Outpatient (CLI) | payer MEDICARE, OTHER, SELFPAY ==
[2023-05-12 12:46] LABS: ALT 29 U/L (16-63); AST 18 U/L (15-37); Albumin 3.5 g/dL (3.4-5.0); Alkaline Phosphatase 59 U/L (46-116); Anion Gap 6.4 mmol/L (3-11); BUN 16 mg/dL (7-18); Bilirubin, Total 0.7 mg/dL (0.2-1.0); CO2 27.6 mmol/L (21.0-32.0); Calcium 8.4 mg/dL (8.5-10.1); Calculated LDL 90 mg/dL (<100); Chloride 105 mmol/L (98-107); Cholesterol 153 mg/dL (<200); Estimated GFR 81.47 (mL/min/1.73m2); Glucose 101 mg/dL (74-106); HDL Cholesterol 55 mg/dL (40-60); Potassium 4.3 mmol/L (3.5-5.1); Sodium 139 mmol/L (136-145); Total Protein 6.7 g/dL (6.4-8.2); Triglyceride 43 mg/dL (<150)
== END 2023-05-12 01:45 | disposition home or self-care (01) ==
LOC: LOS 01:44
PROVIDERS: PCP Nurse Practitioner Family; Visit Provider Nurse Practitioner Family
DX: E78.5 Hyperlipidemia, unspecified (principal)
CPT/HCPCS: 36415; 80053; 80061

== ENCOUNTER 2024-04-18 03:55 | Outpatient (CLI) | payer MEDICARE, OTHER, SELFPAY ==
[2024-04-18 13:52] LABS: ALT 28 U/L (16-63); AST 18 U/L (15-37); Albumin 3.8 g/dL (3.4-5.0); Alkaline Phosphatase 71 U/L (46-116); Anion Gap 6.5 mmol/L (3-11); BUN 14 mg/dL (7-18); Bilirubin, Total 0.75 mg/dL (0.2-1.0); CO2 29.5 mmol/L (21.0-32.0); Calcium 8.7 mg/dL (8.5-10.1); Calculated LDL 83 mg/dL (<100); Chloride 106 mmol/L (98-107); Cholesterol 161 mg/dL (<200); Estimated GFR 80.97 (mL/min/1.73m2); Glucose 90 mg/dL (74-106); HDL Cholesterol 69 mg/dL (40-60); Potassium 4.3 mmol/L (3.5-5.1); Sodium 142 mmol/L (136-145); Total Protein 6.8 g/dL (6.4-8.2); Triglyceride 45 mg/dL (<150)
[2024-04-19 09:25] LABS: HIV-1/2 Ag & Ab Screen Negative (Negative)
[2024-04-19 09:48] LABS: Hepatitis C Ab w Rflx HCV PCR Negative (Negative)
== END 2024-04-18 03:56 | disposition home or self-care (01) ==
PROVIDERS: PCP Nurse Practitioner Family; Visit Provider Nurse Practitioner Family
DX: Z11.59 Encounter for screening for other viral diseases (principal); E78.5 Hyperlipidemia, unspecified; Z11.4 Encounter for screening for human immunodeficiency virus [HIV]
CPT/HCPCS: 36415; 80053; 80061; 86803; 87389